=== PATIENT | female | born 1965 | race African-American/Black ===

== ENCOUNTER 2021-02-19 09:51 | Emergency (ER) | payer BC ==
[~2021-02-19] VITALS: Ht 162.6 cm; Wt 66.7 kg
[2021-02-19 09:52] VITALS: BP 136/68
[2021-02-19] MEDS ORDERED: KETOROLAC TROMETH 60MG/2ML VIAL IM ONE (10:45)
== END 2021-02-19 11:51 | disposition home or self-care (01) ==
LOC: ER 09:51
DX: S46.912A Strain of unspecified muscle, fascia and tendon at shoulder and upper arm level, left arm, initial encounter (principal); S56.912A Strain of unspecified muscles, fascia and tendons at forearm level, left arm, initial encounter; S70.02XA Contusion of left hip, initial encounter; M19.90 Unspecified osteoarthritis, unspecified site; Z88.8 Allergy status to other drugs, medicaments and biological substances; W11.XXXA Fall on and from ladder, initial encounter; Y93.89 Activity, other specified; Y92.89 Other specified places as the place of occurrence of the external cause; Y99.8 Other external cause status
CPT/HCPCS: 73030; 73090; 73502; 96372; 99284; J1885